=== PATIENT | female | born 1960 | race Two or more races ===

== ENCOUNTER 2016-09-28 12:22 | Emergency (ER) | payer OTHER ==
[~2016-09-28] VITALS: Ht 152.4 cm; Wt 77.1 kg
[2016-09-28] MEDS ORDERED: NKM (12:37)
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
[2016-09-28] MEDS ORDERED: ROBAXIN-750750 MG PO (15:48)
[2016-09-28] MEDS ORDERED: NAPROXEN500 M1 ORAL (15:48)
[2016-09-28 15:55] VITALS: BP 144/78
[2016-09-28 15:56] VITALS: BP 144/78
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
== END 2016-09-28 15:57 | disposition home or self-care (01) ==
LOC: EMR 13:05
DX: S16.1XXA Strain of muscle, fascia and tendon at neck level, initial encounter (principal); S06.0X0A Concussion without loss of consciousness, initial encounter; S89.82XA Other specified injuries of left lower leg, initial encounter; S89.81XA Other specified injuries of right lower leg, initial encounter; V43.52XA Car driver injured in collision with other type car in traffic accident, initial encounter; Y92.410 Unspecified street and highway as the place of occurrence of the external cause
CPT/HCPCS: 70450; 72040; 99284

== ENCOUNTER 2018-03-01 10:44 | Emergency (ER) | payer MEDICAID, OTHER ==
[~2018-03-01] VITALS: Ht 162.6 cm; Wt 74.4 kg
[~2018-03-01 10:44] MED LIST: NAPROXEN500 M1 ORAL; NKM; ROBAXIN-750750 MG PO
[2018-03-01 11:01] VITALS: BP 116/76
[2018-03-01 11:18] LABS: APPEARANCE,URINE TURBID; BILIRUBIN, URINE NEGATIVE (NEGATIVE); GLUCOSE, URINE (UA) NEGATIVE (NEGATIVE); KETONES,URINE 1+ (NEGATIVE); LEUKOCYTE ESTERASE ,URINE 3+ (NEGATIVE); NITRITE,URINE POSITIVE (NEGATIVE); PH,URINE 8 (4.5-8.0); PROTEIN,URINE 3+ (NEGATIVE); UROBILINOGEN,URINE 1 MG/DL (0.0-1.0)
[2018-03-01 11:24] LABS: COLOR,URINE YELLOW
[2018-03-01] MEDS ORDERED: PHENAZOPYRIDIN100 MG ORAL (11:39)
[2018-03-01] MEDS ORDERED: BACTRIM DS TAB1 EAC1 ORAL (11:39)
[2018-03-01 11:47] VITALS: BP 123/79
--- NOTE | 2018-03-01 11:51 | Emergency Room Report ---
History of Present Illness General Chief Complaint: Female Urogenital Problems Source: Patient Present Illness HPI Patient present with complaints of dysuria and burning Over the past one day she reports that she recently had sexual intercourse with her and soon after was having some discomfort with urination Denies any abdominal pain denies any vomiting And eyes any fevers or chills Denies any flank pain Allergies: Coded Allergies: No Known Allergies (Unverified , 09/28/16) Patient History Past Medical History: see triage record Pertinent Family History: none Now: No Reviewed Nursing Documentation: PMH: Agreed; PSxH: Agreed Nursing Documentation-PMH Past Medical History: No Stated History Review of Systems All Other Systems: negative except mentioned in HPI Physical Exam Vital Signs Date Time Temp Pulse Resp B/P (MAP) Pulse Ox O2 Delivery O2 Flow Rate FiO2 03/01/18 10:50 98.4 85 18 116/76 97 Room Air 98.4 Sp02 EP Interpretation: reviewed, normal General Appearance: well appearing, no apparent distress Head: normocephalic, atraumatic Eyes: bilateral eye PERRL, bilateral eye EOMI ENT: hearing grossly normal, normal pharynx, TMs + canals normal, uvula midline Neck: full range of motion, supple, no meningismus, no bony tend Respiratory: lungs clear, normal breath sounds, no rhonchi, no respiratory distress, no retraction, no accessory muscle use Cardiovascular #1: normal peripheral pulses, regular rate, rhythm, no edema, no gallop, no JVD, no murmur Gastrointestinal: normal bowel sounds, non tender, soft, no mass, no organomegaly, non-distended, no guarding, no hernia, no pulsatile mass, no rebound Genitourinary: no CVA tenderness Musculoskeletal: normal inspection Neurologic: oriented x3, responsive, exterior work helper III-XII nml as tested, motor strength/ tone normal, sensory intact Psychiatric: mood/affect normal Skin: normal color, no rash, warm/dry, palpation normal Lymphatic: normal inspection, no adenopathy Medical Decision Making Diagnostic Impression: Primary Impression: uti ER Course With the patient's history and examination, multiple differentials considered, including but not limited to , ectopic , ovarian torsion, gastritis, cholecystitis, pancreatitis, appendicitis Patient's abdominal exam is fairly benign Patient is afebrile Urine sample at this time does show significant infectious pathology patient is placed on oral antibiotics and will have initial conservative outpatient trial patient will return with any worsening symptoms Labs Test 03/01/18 11:00 Urine Color Yellow Urine Appearance Turbid Urine pH 8 (4.5-8.0) Urine Specific [place] 1.010 (1.005-1.035) Urine Protein 3+ (NEGATIVE) Urine Glucose (UA) Negative (NEGATIVE) Urine Ketones 1+ (NEGATIVE) Urine Occult Blood 5+ (NEGATIVE) Urine Nitrite Positive (NEGATIVE) Urine Bilirubin Negative (NEGATIVE) Urine Urobilinogen 1 MG/DL (0.0-1.0) Urine Leukocyte Esterase 3+ (NEGATIVE) Urine RBC Tntc /HPF (0 - 2) Urine WBC Tntc /HPF (0 - 2) Urine Squamous Epithelial Cells Many /LPF (NONE/OCC) Urine Bacteria Moderate /HPF (NONE) Last Vital Signs Date Time Temp Pulse Resp B/P (MAP) Pulse Ox O2 Delivery O2 Flow Rate FiO2 03/01/18 11:01 98.4 87 18 116/76 97 Room Air 98.4 Status: improved Disposition: HOME, SELF-CARE Condition: Stable Scripts Phenazopyridine Hcl* (PYRIDIUM*) 100 Mg Tablet 100 MG ORAL THREE TIMES A DAY for 3 Days, TAB Prov: Jaclyn Morfin DO 03/01/18 Trimethoprim/Sulfamethoxazole 160/800* (BACTRIM DS TABLET*) 1 Each Tablet 1 TAB ORAL Q12H, #14 TAB 0 Refills Prov: Jaclyn Morfin DO 03/01/18 Referrals: NOT APPLICABLE THIS PATIENT,RE (PCP) Patient Instructions: Urinary Tract Infection Additional Instructions: Patient is provided with the discharge instructions notified to follow up with primary doctor in the next 2-3 days otherwise return to the er with any worsening symptoms. Please note that this report is being documented using XOG technology. This can lead to erroneous entry secondary to incorrect interpretation by the dictating instrument. Jaclyn Morfin DO Mar 01, 2018 11:51
== END 2018-03-01 11:47 | disposition home or self-care (01) ==
LOC: EMR 11:24
DX: N39.0 Urinary tract infection, site not specified (principal)
CPT/HCPCS: 81003; 87086; 99283

== ENCOUNTER 2019-04-10 19:33 | Emergency (ER) | payer MEDICAID, OTHER ==
[~2019-04-10] VITALS: Ht 165.1 cm; Wt 70.3 kg
[~2019-04-10 19:33] MED LIST changes: +BACTRIM DS TAB1 EAC1 ORAL; +PHENAZOPYRIDIN100 MG ORAL
[2019-04-10 19:44] VITALS: BP 108/71
--- NOTE | 2019-04-10 19:44 | NUR ---
ED Nurse Note: Patient walked in to ER due to right arm redness with swelling, c/o itching and warm to touch due to unknown insect bite. Pt stated this was occured 2 days ago. No drainage noted. No stated medical history. alert and oriented, verbally responsive. Afebrile. VSS.
--- NOTE | 2019-04-10 20:19 | Emergency Room Report ---
History of Present Illness General Chief Complaint: Skin Rash/Abscess Source: Patient Present Illness HPI 58-year-old female with no significant past medical history here complaining of 1 day of pruritus and swelling in the right elbow after being bit by an insect. Patient does not recall whether she saw the insect that she was bit with however denies any fever and chills and pain at the site of the affected area. Reports swelling at the site and warm to touch. Patient has not taken medication for symptom relief has full range of motion, denies any tingling and numbness. Denies chest pain, shortness of breath, palpitation, abdominal pain, nausea vomiting, no other associated symptoms. Denies recent travel, camping. Allergies: Coded Allergies: No Known Allergies (Unverified , 09/28/16) Patient History Past Medical History: see triage record Past Surgical History: unable to obtain Pertinent Family History: none Last Menstrual Period: na Now: No Immunizations: UTD Reviewed Nursing Documentation: PMH: Agreed; PSxH: Agreed Nursing Documentation-PMH Past Medical History: No Stated History Review of Systems All Other Systems: negative except mentioned in HPI Physical Exam Vital Signs Date Time Temp Pulse Resp B/P (MAP) Pulse Ox O2 Delivery O2 Flow Rate FiO2 04/10/19 19:38 98.1 63 16 108/71 (83) 97 Room Air Sp02 EP Interpretation: reviewed, normal General Appearance: no apparent distress, alert, GCS 15, non-toxic Head: normocephalic, atraumatic Eyes: bilateral eye normal inspection, bilateral eye PERRL ENT: hearing grossly normal, normal pharynx, no angioedema, normal voice Neck: full range of motion, supple/symm/no masses Respiratory: chest non-tender, lungs clear, normal breath sounds, no rhonchi, no wheezing, speaking full sentences Cardiovascular #1: regular rate, rhythm, no edema, no murmur Cardiovascular #2: 2+ radial (R), 2+ radial (L) Gastrointestinal: normal bowel sounds, non tender, soft, non-distended, no guarding, no rebound Genitourinary: normal inspection, no CVA tenderness Musculoskeletal: back normal, gait/station normal, normal range of motion, non- tender, swelling - right elbow Neurologic: alert, oriented x3, responsive, motor strength/tone normal, sensory intact, speech normal Psychiatric: judgement/insight normal, memory normal, mood/affect normal, no suicidal/homicidal ideation Skin: rash - right elbow, warm to touch, non celuletic Lymphatic: normal inspection, no adenopathy Medical Decision Making PA Attestation All diagnoses and treatment plans were reviewed and discussed with my supervising physician Dr. Larson Diagnostic Impression: Primary Impression: Infected insect bite ER Course 58-year-old female with no significant past medical history here complaining of 1 day of pruritus and swelling in the right elbow after being bit by an insect. Patient does not recall whether she saw the insect that she was bit with however denies any fever and chills and pain at the site of the affected area. Reports swelling at the site and warm to touch. Patient has not taken medication for symptom relief has full range of motion, denies any tingling and numbness. Denies chest pain, shortness of breath, palpitation, abdominal pain, nausea vomiting, no other associated symptoms. Denies recent travel, camping. Ddx considered but are not limited to: Eczema, scabies, lice, noninfected insect bite, insect bite Vital signs: are WNL, pt. is afebrile H&PE are most consistent with: Infected insect bite ORDERS: Patient verbalizes to me that she is allergic to penicillin, I wrote for Bactrim DS, prednisone, hydrocortisone cream ED INTERVENTIONS: None required at this time. DISCHARGE: At this time pt. is stable for d/c to home. Will provide printed patient care instructions, and any necessary prescriptions. Care plan and follow up instructions have been discussed with the patient prior to discharge. I advised the patient to avoid showers, avoiding exposure to scented perfume and lotion also follow-up with primary care provider if worsening symptoms return to the emergency room Last Vital Signs Date Time Temp Pulse Resp B/P (MAP) Pulse Ox O2 Delivery O2 Flow Rate FiO2 04/10/19 19:44 98.1 88 16 108/71 97 Room Air Disposition: HOME, SELF-CARE Condition: Stable Scripts Hydrocortisone/Aloe Vera 1%* (HYDROCORTISONE-ALOE 1% CREAM*) Y Cr 1 APPLIC TOPIC Q6H PRN for Itching, #30 GM Prov: China Miller 04/10/19 Prednisone* (PREDNISONE*) 10 Mg Tablet 10 MG ORAL BID for 5 Days, #10 TAB 0 Refills Prov: China Miller 04/10/19 Trimethoprim/Sulfamethoxazole 160/800* (BACTRIM DS TABLET*) 1 Each Tablet 1 TAB ORAL TWICE A DAY for 7 Days, #14 TAB Prov: China Miller 04/10/19 Referrals: [facility],REFERR[facility] (PCP) Patient Instructions: Insect Bite, [id number] Additional Instructions: Take medication as directed follow-up with your primary care provider if worsening symptoms return to the emergency room China Miller Apr 10, 2019 20:19
[2019-04-10] MEDS ORDERED: HYDROCORTISONE-30 GM TOPIC (20:21)
[2019-04-10] MEDS ORDERED: PREDNISONE10 MG ORAL (20:21)
[2019-04-10] MEDS ORDERED: BACTRIM DS TAB1 EAC1 ORAL (20:21)
[2019-04-10 20:30] VITALS: BP 108/71
--- NOTE | 2019-04-10 20:30 | NUR ---
ED Nurse Note: Pt cleared by ERMD for discharge. DC instructions/prescription was given and explained to pt and verbalized understanding of teachings. All medical deviecs such as ID band removed. Pt is AAO x4, ambulatory and left with all personal belongings.
== END 2019-04-10 20:30 | disposition home or self-care (01) ==
LOC: EMR 20:00
DX: S50.361A Insect bite (nonvenomous) of right elbow, initial encounter (principal); L08.9 Local infection of the skin and subcutaneous tissue, unspecified; W57.XXXA Bitten or stung by nonvenomous insect and other nonvenomous arthropods, initial encounter; Y92.9 Unspecified place or not applicable
CPT/HCPCS: 99282